=== PATIENT | male | born 1940 | race Caucasian/White ===

== ENCOUNTER 2023-02-13 12:27 | Emergency (ER) | payer MEDICARE ==
[2023-02-13 13:16] LABS: #Basophils 0.1 thou/uL (0.0-0.2); #Monocytes 0.9 thou/uL (0.11-0.59); %Basophils 0.6 % (0.0-1.0); %Eosinophils 0.1 % (0.0-10.0); %Monocytes 5.1 % (0.0-10.0); %Neutrophils 80.9 % (42.0-75.0); Hematocrit 40.8 % (42.0-52.0); Hemoglobin 14.1 g/dL (14.0-18.0); Mean Corpuscular HGB CONC 34.6 g/dL (32.0-36.0); Mean Corpuscular Hemoglobin 30.7 pg (27.0-31.0); Mean Corpuscular Volume 88.7 fl (78.0-98.0); Mean Platelet Volume 10.3 fL (7.4-10.4); Platelet Count 185 10x3/uL (130-400); RBC Distribution Width 12.7 % (11.5-14.5); White Blood Cell (WBC) Count 17.3 10x3/uL (4.8-10.8)
[2023-02-13 13:24] LABS: Bacteria/HPF None Seen HPF (None Seen); Bilirubin Negative (Negative); Blood, Urine Negative (Negative); CAUTI Indications for Culture Alt mental st,lethar; Clarity Clear (Clear); Glucose, Urine (Dipstick) Normal (Negative); Ketone, Urine Negative (Negative); Leukocyte Negative Leu/uL (Negative); Nitrite Negative (Negative); Protein, Urine (Dipstick) Negative (Neg-Trace); RBC/HPF None Seen HPF (0-3); Specific Gravity, Urine 1.017 (1.002-1.036); Squamous Epithelial None Seen HPF (0-3); Urobilinogen Normal mg/dL (Less than 2); WBC/HPF 0-3 HPF (0-3)
[2023-02-13 13:28] LABS: Urine Culture Reflex No No
[2023-02-13 13:37] LABS: INR-International Normal Ratio 1.1; PTT 30.2 sec (22.9-36.1); Prothrombin Time 14.3 sec (12.0-14.7)
[2023-02-13 13:43] LABS: ALT (SGPT) 11 U/L (8-55); AST (SGOT) 36 U/L (5-34); Albumin 4.1 g/dL (3.4-4.8); Alkaline Phosphatase 85 U/L (40-110); Anion Gap 12 mmol/L (10-20); BUN (Urea Nitrogen) 19 mg/dL (8.4-25.7); Calc. Creatinine Clearance 0 mL/min (70-130); Calcium 9.4 mg/dL (7.8-10.44); Carbon Dioxide 22 mmol/L (23-31); Chloride 102 mmol/L (98-107); Estimated GFR 72; Globulin 3.7 g/dL (2.4-3.5); Glucose 133 mg/dL (83-110); Potassium 4.1 mmol/L (3.5-5.1); Protein, Total 7.8 g/dL (5.8-8.1); Sodium 132 mmol/L (136-145)
[2023-02-13 14:16] LABS: Troponin I Less than 0.010 ng/mL (< 0.028)
[2023-02-13] MEDS ORDERED: cefTRIAXone (ROCEPHIN) 1 GM VIAL ONE (14:27)
== END 2023-02-13 15:30 | disposition home or self-care (01) ==
LOC: ERS 12:27
DX: R53.1 Weakness (principal); J18.9 Pneumonia, unspecified organism
CPT/HCPCS: 36415; 51701; 70450; 71045; 80053; 81001; 83605; 84484; 85025; 85610; 85730; 87040; 87086; 93005; 94760; 96374; J0696

== ENCOUNTER 2024-02-24 21:59 | Inpatient (IN) | payer MEDICARE ==
[2024-02-24 22:59] LABS: Bacteria/HPF None Seen HPF (None Seen); Bilirubin Negative (Negative); Blood, Urine 1+ (Negative); CAUTI Indications for Culture Dysuria,urgency,freq; Clarity Extra Turbid (Clear); Glucose, Urine (Dipstick) Normal (Negative); Ketone, Urine Trace mg/dL (Negative); Leukocyte 500 Leu/uL (Negative); Nitrite Negative (Negative); Protein, Urine (Dipstick) 30 mg/dL (Neg-Trace); RBC/HPF 21-50 HPF (0-3); Squamous Epithelial None Seen HPF (0-3); Urobilinogen Normal mg/dL (Less than 2); WBC/HPF Greater than 50 HPF (0-3); pH, Urine 5.5 (5.0-9.0)
[2024-02-24 23:01] LABS: Urine Culture Reflex Yes Yes
[2024-02-24 23:24] LABS: #Basophils 0.12 10x3/uL (0.0-0.2); #Eosinphils Less than 0.03 10x3/uL (0.0-0.7); %Basophils 0.5 % (0.0-1.0); %Eosinophils 0.1 % (0.0-10.0); %Lymphocytes 9.8 % (21.0-51.0); %Monocytes 7.9 % (0.0-10.0); %Neutrophils 81.2 % (42.0-75.0); Hematocrit 35.7 % (42.0-52.0); Mean Corpuscular HGB CONC 33.6 g/dL (32.0-36.0); Mean Corpuscular Hemoglobin 30.8 pg (27.0-31.0); Mean Corpuscular Volume 91.8 fL (78.0-98.0); Mean Platelet Volume 10.3 fL (7.4-10.4); Platelet Count 189 10x3/uL (130-400); RBC Distribution Width 13.2 % (11.5-14.5); Red Blood Cell (RBC) Count 3.89 mill/uL (4.70-6.10)
[2024-02-24 23:28] LABS: ALT (SGPT) Less than 5 U/L (8-55); AST (SGOT) 24 U/L (5-34); Albumin 3.6 g/dL (3.4-4.8); Alkaline Phosphatase 90 U/L (40-110); Anion Gap 15 mmol/L (10-20); BUN (Urea Nitrogen) 17 mg/dL (8.4-25.7); Bilirubin, Total 1.1 mg/dL (0.2-1.2); Calc. Creatinine Clearance 0 mL/min (70-130); Calcium 9.3 mg/dL (7.8-10.44); Carbon Dioxide 21 mmol/L (23-31); Chloride 101 mmol/L (98-107); Estimated GFR 78; Globulin 3.7 g/dL (2.4-3.5); Glucose 134 mg/dL (83-110); Potassium 3.8 mmol/L (3.5-5.1); Protein, Total 7.3 g/dL (5.8-8.1); Sodium 133 mmol/L (136-145)
[2024-02-24 23:34] LABS: Troponin I 0.024 ng/mL (< 0.028)
[2024-02-24] MEDS ORDERED: Sodium Chloride 0.9% 100 ML ONE (23:48)
[2024-02-24] MEDS ORDERED: Piperacillin/Tazobactam 3.375 GM VIAL ONE (23:48)
[2024-02-25 00:34] LABS: Lipase 54 U/L (8-78); Magnesium 1.9 mg/dL (1.6-2.6)
[2024-02-25] MEDS ORDERED: Ondansetron ODT 4 MG TAB PO PRN (01:15)
[2024-02-25] MEDS ORDERED: Acetaminophen 325 MG TAB PO PRN (01:15)
[2024-02-25 02:55] LABS: #Basophils 0.11 10x3/uL (0.0-0.2); #Eosinphils Less than 0.03 10x3/uL (0.0-0.7); %Basophils 0.6 % (0.0-1.0); %Eosinophils 0.1 % (0.0-10.0); %Lymphocytes 12.3 % (21.0-51.0); %Neutrophils 77.6 % (42.0-75.0); Hemoglobin 11.6 g/dL (14.0-18.0); Mean Corpuscular HGB CONC 33.1 g/dL (32.0-36.0); Mean Corpuscular Hemoglobin 31.3 pg (27.0-31.0); Mean Corpuscular Volume 94.3 fL (78.0-98.0); Mean Platelet Volume 10.2 fL (7.4-10.4); Platelet Count 164 10x3/uL (130-400); RBC Distribution Width 13.2 % (11.5-14.5); Red Blood Cell (RBC) Count 3.71 mill/uL (4.70-6.10)
[2024-02-25 03:08] LABS: Lactic Acid 2.02 mmol/L (0.5-2.2)
[2024-02-25] MEDS: Piperacillin/Tazobactam 3.375 GM in Sodium Chloride 0.9% 100 ML IVPB SCH (04:18)
[2024-02-25 04:55] LABS: ALT (SGPT) 11 U/L (8-55); AST (SGOT) 23 U/L (5-34); Albumin 3.4 g/dL (3.4-4.8); Alkaline Phosphatase 82 U/L (40-110); Anion Gap 17 mmol/L (10-20); BUN (Urea Nitrogen) 16 mg/dL (8.4-25.7); Bilirubin, Total 1.5 mg/dL (0.2-1.2); Calc. Creatinine Clearance 78 mL/min (70-130); Calcium 8.9 mg/dL (7.8-10.44); Carbon Dioxide 15 mmol/L (23-31); Chloride 106 mmol/L (98-107); Estimated GFR 87; Globulin 3.3 g/dL (2.4-3.5); Glucose 122 mg/dL (83-110); Potassium 3.8 mmol/L (3.5-5.1); Protein, Total 6.7 g/dL (5.8-8.1); Sodium 134 mmol/L (136-145)
[2024-02-25] MEDS: Carbidopa/Levodopa 25-100 mg Tablet PO SCH ×2 (08:33→15:01)
[2024-02-25] MEDS: Saccharomyces boulardii 250 MG CAP PO SCH (08:33)
[2024-02-25] MEDS: Sertraline 25 MG TAB PO SCH (08:33)
[2024-02-25] MEDS: Apixaban 5 MG TAB PO SCH (08:33)
[2024-02-25] MEDS ORDERED: Enoxaparin 30 MG (0.3 mL) SYRINGE SC SCH (09:00)
[2024-02-25 10:08] LABS: Amphetamine Detected (NotDetected); Barbiturates Screen Not Detected (NotDetected); Benzodiazepine Screen Not Detected (NotDetected); Cocaine Metabolite Screen Not Detected (NotDetected); Methadone Not Detected (NotDetected); Methamphetamine Not Detected (NotDetected); Opiate Screen Not Detected (NotDetected); Oxycodone Screen Not Detected (NotDetected); Phencyclidine (PCP) Not Detected (NotDetected); THC/Cannabinoid Screen Not Detected (NotDetected); Tricyclic Screen Not Detected (NotDetected)
[2024-02-25] MEDS: Famotidine 20 MG TAB PO SCH (20:56)
[2024-02-26 06:24] VITALS: BMI 26.0
[2024-02-26 08:40] LABS: #Basophils 0.08 10x3/uL (0.0-0.2); %Basophils 0.9 % (0.0-1.0); %Eosinophils 1.1 % (0.0-10.0); %Lymphocytes 19.8 % (21.0-51.0); %Monocytes 8.7 % (0.0-10.0); %Neutrophils 69.2 % (42.0-75.0); Hematocrit 34.3 % (42.0-52.0); Hemoglobin 11.6 g/dL (14.0-18.0); Mean Corpuscular HGB CONC 33.8 g/dL (32.0-36.0); Mean Corpuscular Hemoglobin 30.9 pg (27.0-31.0); Mean Corpuscular Volume 91.5 fL (78.0-98.0); Mean Platelet Volume 10.7 fL (7.4-10.4); Platelet Count 143 10x3/uL (130-400); RBC Distribution Width 13.2 % (11.5-14.5); Red Blood Cell (RBC) Count 3.75 mill/uL (4.70-6.10)
[2024-02-26 08:56] LABS: ALT (SGPT) 8 U/L (8-55); AST (SGOT) 21 U/L (5-34); Alkaline Phosphatase 77 U/L (40-110); Anion Gap 12 mmol/L (10-20); BUN (Urea Nitrogen) 11 mg/dL (8.4-25.7); Calc. Creatinine Clearance 72 mL/min (70-130); Calcium 8.6 mg/dL (7.8-10.44); Carbon Dioxide 23 mmol/L (23-31); Chloride 105 mmol/L (98-107); Estimated GFR 86; Globulin 3.6 g/dL (2.4-3.5); Glucose 153 mg/dL (83-110); Potassium 3.6 mmol/L (3.5-5.1); Protein, Total 6.6 g/dL (5.8-8.1); Sodium 136 mmol/L (136-145)
[2024-02-27 05:31] LABS: #Basophils 0.07 10x3/uL (0.0-0.2); %Basophils 1.2 % (0.0-1.0); %Eosinophils 2.4 % (0.0-10.0); %Lymphocytes 27.1 % (21.0-51.0); %Monocytes 10.9 % (0.0-10.0); %Neutrophils 58.1 % (42.0-75.0); Hematocrit 33.5 % (42.0-52.0); Hemoglobin 11.3 g/dL (14.0-18.0); Mean Corpuscular HGB CONC 33.7 g/dL (32.0-36.0); Mean Platelet Volume 10.5 fL (7.4-10.4); Platelet Count 164 10x3/uL (130-400); RBC Distribution Width 12.9 % (11.5-14.5); Red Blood Cell (RBC) Count 3.64 mill/uL (4.70-6.10)
[2024-02-27 05:49] LABS: ALT (SGPT) 5 U/L (8-55); AST (SGOT) 19 U/L (5-34); Albumin 3.1 g/dL (3.4-4.8); Alkaline Phosphatase 76 U/L (40-110); Anion Gap 12 mmol/L (10-20); BUN (Urea Nitrogen) 10 mg/dL (8.4-25.7); Bilirubin, Total 0.6 mg/dL (0.2-1.2); Calc. Creatinine Clearance 73 mL/min (70-130); Calcium 8.8 mg/dL (7.8-10.44); Carbon Dioxide 22 mmol/L (23-31); Chloride 108 mmol/L (98-107); Estimated GFR 87; Globulin 3.4 g/dL (2.4-3.5); Glucose 120 mg/dL (83-110); Potassium 3.7 mmol/L (3.5-5.1); Protein, Total 6.5 g/dL (5.8-8.1); Sodium 138 mmol/L (136-145)
[2024-02-27 06:32] LABS: Campy jejuni + coli by PCR Negative (Negative); STEC Shiga Toxin 1+2 Negative (Negative); Salmonella spp. by PCR Negative (Negative); Shigella spp + EIEC by PCR Negative (Negative)
[2024-02-27] MEDS: Famotidine 20 MG TAB PO SCH ×2 (13:27→20:08)
[2024-02-27] MEDS: Cefepime 1 GM in Sodium Chloride 0.9% 100 ML IVPB SCH (20:09)
[2024-02-28 05:26] LABS: #Basophils 0.08 10x3/uL (0.0-0.2); %Basophils 1.5 % (0.0-1.0); %Eosinophils 4.3 % (0.0-10.0); %Lymphocytes 48.2 % (21.0-51.0); %Monocytes 9.2 % (0.0-10.0); %Neutrophils 36.6 % (42.0-75.0); Hematocrit 34.4 % (42.0-52.0); Hemoglobin 11.5 g/dL (14.0-18.0); Mean Corpuscular HGB CONC 33.4 g/dL (32.0-36.0); Mean Corpuscular Hemoglobin 31.1 pg (27.0-31.0); Mean Platelet Volume 10.2 fL (7.4-10.4); Platelet Count 174 10x3/uL (130-400); RBC Distribution Width 12.8 % (11.5-14.5)
[2024-02-28 05:37] LABS: ALT (SGPT) Less than 5 U/L (8-55); AST (SGOT) 19 U/L (5-34); Albumin 3.1 g/dL (3.4-4.8); Alkaline Phosphatase 78 U/L (40-110); Anion Gap 13 mmol/L (10-20); BUN (Urea Nitrogen) 10 mg/dL (8.4-25.7); Bilirubin, Total 0.6 mg/dL (0.2-1.2); Calc. Creatinine Clearance 79 mL/min (70-130); Calcium 9.5 mg/dL (7.8-10.44); Carbon Dioxide 23 mmol/L (23-31); Chloride 108 mmol/L (98-107); Estimated GFR 89; Globulin 3.6 g/dL (2.4-3.5); Glucose 106 mg/dL (83-110); Potassium 3.6 mmol/L (3.5-5.1); Protein, Total 6.7 g/dL (5.8-8.1); Sodium 140 mmol/L (136-145)
[2024-02-29 05:33] LABS: #Basophils 0.09 10x3/uL (0.0-0.2); %Basophils 1.4 % (0.0-1.0); %Eosinophils 3.7 % (0.0-10.0); %Lymphocytes 41.9 % (21.0-51.0); %Neutrophils 43.8 % (42.0-75.0); Hematocrit 36.9 % (42.0-52.0); Hemoglobin 12.3 g/dL (14.0-18.0); Mean Corpuscular HGB CONC 33.3 g/dL (32.0-36.0); Mean Corpuscular Volume 92.9 fL (78.0-98.0); Mean Platelet Volume 9.8 fL (7.4-10.4); Platelet Count 207 10x3/uL (130-400); RBC Distribution Width 12.6 % (11.5-14.5); Red Blood Cell (RBC) Count 3.97 mill/uL (4.70-6.10)
[2024-02-29 05:38] LABS: ALT (SGPT) 6 U/L (8-55); AST (SGOT) 18 U/L (5-34); Albumin 3.4 g/dL (3.4-4.8); Alkaline Phosphatase 81 U/L (40-110); Anion Gap 12 mmol/L (10-20); BUN (Urea Nitrogen) 10 mg/dL (8.4-25.7); Bilirubin, Total 0.6 mg/dL (0.2-1.2); Calc. Creatinine Clearance 66 mL/min (70-130); Calcium 9.5 mg/dL (7.8-10.44); Carbon Dioxide 25 mmol/L (23-31); Chloride 107 mmol/L (98-107); Estimated GFR 79; Globulin 3.7 g/dL (2.4-3.5); Glucose 111 mg/dL (83-110); Potassium 3.8 mmol/L (3.5-5.1); Protein, Total 7.1 g/dL (5.8-8.1); Sodium 140 mmol/L (136-145)
[2024-03-01] MEDS ORDERED: Lidocaine 1% PF 5 ML VIAL ONE (07:50)
[2024-03-01] MEDS ORDERED: Sodium Bicarbonate 0.5 MEQ/ML SDV 10 ML ONE (07:50)
[2024-03-02 13:22] VITALS: BP 109/63; TEMP 97.4
== END 2024-03-02 13:30 | DRG 690 ==
LOC: ERS 21:59 → MSONC 02-25 00:31 → OBSVTOIN 02-26 08:42
PROVIDERS: ADMIT Family Medicine; ATTEND Family Medicine
PROC: 02HV33Z Insertion of Infusion Device into Superior Vena Cava, Percutaneous Approach (ICD-10-PCS; principal; 2024-03-01)
PROC: B5181ZA Fluoroscopy of Superior Vena Cava using Low Osmolar Contrast, Guidance (ICD-10-PCS; 2024-03-01)
PROC: B548ZZA Ultrasonography of Superior Vena Cava, Guidance (ICD-10-PCS; 2024-03-01)
DX: N39.0 Urinary tract infection, site not specified (principal); E87.1 Hypo-osmolality and hyponatremia; G20.A1 Parkinson's disease without dyskinesia, without mention of fluctuations; E11.9 Type 2 diabetes mellitus without complications; N40.0 Benign prostatic hyperplasia without lower urinary tract symptoms; Z66 Do not resuscitate; R19.7 Diarrhea, unspecified; Z79.899 Other long term (current) drug therapy
CPT/HCPCS: 36415; 36569; 51701; 76937; 77001; 80053; 80306; 81001; 83605; 83690; 83735; 83880; 84436; 84443; 84484; 85025; 87040; 87077; 87086; 87186; 87324; 87449; 87505; 96365; 96376; C1751; G0378; J0692; J2543

== ENCOUNTER 2024-03-03 01:28 | Emergency (ER) | payer MEDICARE ==
[2024-03-03] MEDS ORDERED: Cefepime 1 GM VIAL ONE (09:00)
[2024-03-03] MEDS ORDERED: Sodium Chloride 0.9% 100 ML ONE (09:01)
== END 2024-03-03 09:05 | disposition home or self-care (01) ==
LOC: ERS 01:28
DX: Z45.2 Encounter for adjustment and management of vascular access device (principal); N39.0 Urinary tract infection, site not specified; E11.9 Type 2 diabetes mellitus without complications
CPT/HCPCS: 96374; J0692

== ENCOUNTER 2024-03-04 17:48 | Emergency (ER) | payer MEDICARE ==
[~2024-03-04 17:48] MED LIST: Iopamidol-370 76% 500 ML MDV (1 ML CHARGE) ONE
[2024-03-04 21:02] LABS: #Basophils 0.08 10x3/uL (0.0-0.2); %Basophils 1.2 % (0.0-1.0); %Eosinophils 2.4 % (0.0-10.0); %Lymphocytes 25.2 % (21.0-51.0); %Monocytes 13.8 % (0.0-10.0); Hematocrit 35.8 % (42.0-52.0); Hemoglobin 12.5 g/dL (14.0-18.0); Mean Corpuscular HGB CONC 34.9 g/dL (32.0-36.0); Mean Corpuscular Hemoglobin 31.3 pg (27.0-31.0); Mean Corpuscular Volume 89.5 fL (78.0-98.0); Platelet Count 193 10x3/uL (130-400); RBC Distribution Width 12.6 % (11.5-14.5)
[2024-03-04 21:18] LABS: ALT (SGPT) Less than 5 U/L (8-55); AST (SGOT) 22 U/L (5-34); Albumin 3.5 g/dL (3.4-4.8); Alkaline Phosphatase 81 U/L (40-110); Anion Gap 11 mmol/L (10-20); BUN (Urea Nitrogen) 17 mg/dL (8.4-25.7); Bilirubin, Total 0.6 mg/dL (0.2-1.2); Calc. Creatinine Clearance 0 mL/min (70-130); Calcium 9.4 mg/dL (7.8-10.44); Carbon Dioxide 22 mmol/L (23-31); Chloride 102 mmol/L (98-107); Estimated GFR 87; Globulin 3.4 g/dL (2.4-3.5); Glucose 116 mg/dL (83-110); Lipase 65 U/L (8-78); Potassium 3.6 mmol/L (3.5-5.1); Protein, Total 6.9 g/dL (5.8-8.1); Sodium 131 mmol/L (136-145)
[2024-03-04] MEDS ORDERED: Cefepime 1 GM VIAL ONE (21:19)
[2024-03-04] MEDS ORDERED: Sodium Chloride 0.9% 100 ML ONE (21:19)
[2024-03-04 21:24] LABS: Troponin I 0.019 ng/mL (< 0.028)
[2024-03-04 22:30] LABS: Bacteria/HPF None Seen HPF (None Seen); Bilirubin Negative (Negative); Blood, Urine Negative (Negative); CAUTI Indications for Culture Alt mental st,lethar; Clarity Clear (Clear); Glucose, Urine (Dipstick) Normal (Negative); Ketone, Urine Negative (Negative); Leukocyte Negative Leu/uL (Negative); Nitrite Negative (Negative); Protein, Urine (Dipstick) Negative (Neg-Trace); RBC/HPF 0-3 HPF (0-3); Squamous Epithelial None Seen HPF (0-3); Urobilinogen Normal mg/dL (Less than 2); WBC/HPF 0-3 HPF (0-3); pH, Urine 5.5 (5.0-9.0)
[2024-03-04 22:44] LABS: Urine Culture Reflex No No
== END 2024-03-05 01:34 | disposition home or self-care (01) ==
LOC: ERS 17:48
DX: R41.82 Altered mental status, unspecified (principal); R05.9 Cough, unspecified; R53.1 Weakness; E11.9 Type 2 diabetes mellitus without complications; Z79.01 Long term (current) use of anticoagulants; Z55.6 Problems related to health literacy
CPT/HCPCS: 51701; 70450; 71275; 72125; 74177; 80053; 81001; 83605; 83690; 83880; 84484; 85025; 87040; 87086; 87428; 93005; 99285; J0692; Q9967; 36415

== ENCOUNTER 2024-03-14 18:53 | Emergency (ER) | payer MEDICARE | END 2024-03-14 23:55 | disposition home or self-care (01) | LOC: ERS 18:53 | DX: S00.03XA Contusion of scalp, initial encounter (principal); E11.9 Type 2 diabetes mellitus without complications; W07.XXXA Fall from chair, initial encounter | CPT/HCPCS: 70450; 72125 ==

== ENCOUNTER 2024-07-19 15:47 | Inpatient (IN) | payer MEDICARE ==
[2024-07-19 16:33] LABS: Analyzer IN Cardio ER; Base Excess 0.7 mEq/L (-2.0 to +3.0); Chloride (VBG) 97 mmol/L (98-106); Hematocrit-VBG 42 % (42.0-52.0); Hemoglobin (Hb) 14.2 g/dL (12.6-17.4); Potassium (VBG) 4.18 mmol/L (3.70-5.30); Sodium 135 mmol/L (133-146); pH (venous) 7.388 (7.32-7.43)
[2024-07-19 16:56] LABS: #Basophils 0.03 10x3/uL (0.0-0.2); %Basophils 0.3 % (0.0-1.0); %Eosinophils 0.7 % (0.0-10.0); %Lymphocytes 10.4 % (21.0-51.0); %Monocytes 5.1 % (0.0-10.0); %Neutrophils 83.2 % (42.0-75.0); Hematocrit 40.6 % (42.0-52.0); Hemoglobin 13.9 g/dL (14.0-18.0); Mean Corpuscular HGB CONC 34.2 g/dL (32.0-36.0); Mean Corpuscular Hemoglobin 29.3 pg (27.0-31.0); Mean Corpuscular Volume 85.7 fL (78.0-98.0); Platelet Count 206 10x3/uL (130-400); RBC Distribution Width 13.2 % (11.5-14.5); Red Blood Cell (RBC) Count 4.74 mill/uL (4.70-6.10)
[2024-07-19 17:06] LABS: ALT (SGPT) Less than 7 U/L (Less than 45); AST (SGOT) 34 U/L (11-34); Albumin 3.4 g/dL (3.1-4.5); Alkaline Phosphatase 121 U/L (40-110); Anion Gap 15 mmol/L (10-20); BUN (Urea Nitrogen) 13 mg/dL (8.4-25.7); Bilirubin, Total 1.2 mg/dL (0.3-1.2); Calc. Creatinine Clearance 0 mL/min (70-130); Calcium 9.2 mg/dL (7.8-10.44); Carbon Dioxide 24 mmol/L (23-31); Chloride 99 mmol/L (98-107); Estimated GFR 86; Globulin 4.4 g/dL (2.4-3.5); Glucose 145 mg/dL (83-110); Potassium 3.8 mmol/L (3.5-5.1); Protein, Total 7.8 g/dL (5.8-8.1); Sodium 134 mmol/L (136-145)
[2024-07-19 17:10] LABS: Troponin I 0.012 ng/mL (< 0.028)
[2024-07-19] MEDS ORDERED: Cefepime 2 GM VIAL ONE (17:10)
[2024-07-19] MEDS ORDERED: Sodium Chloride 0.9% 100 ML ONE (17:10)
[2024-07-19 17:54] LABS: Bacteria/HPF 4+ HPF (None Seen); Bilirubin Negative (Negative); Blood, Urine Trace (Negative); CAUTI Indications for Culture < 2yrs of age; Clarity Turbid (Clear); Glucose, Urine (Dipstick) Normal (Negative); Ketone, Urine Negative (Negative); Leukocyte 500 Leu/uL (Negative); Nitrite 2+ (Negative); Protein, Urine (Dipstick) 10 mg/dL (Neg-Trace); Specific Gravity, Urine 1.012 (1.002-1.036); Squamous Epithelial 0-3 HPF (0-3); Urobilinogen 3 mg/dL (Less than 2); WBC/HPF Greater than 50 HPF (0-3); pH, Urine 5.5 (5.0-9.0)
[2024-07-19 17:56] LABS: Urine Culture Reflex Yes Yes
[2024-07-19] MEDS ORDERED: Vancomycin (BATCH) 1.75 GM in Premix 1 BAG IVPB SCH (18:45)
[2024-07-19 20:16] LABS: Lactic Acid 4.02 mmol/L (0.50-2.20)
[2024-07-19] MEDS ORDERED: Acetaminophen 650 MG Suppository ONE (20:17)
[2024-07-19] MEDS ORDERED: Ondansetron PF 4 MG/2 ML Vial IVP PRN (20:30)
[2024-07-19] MEDS ORDERED: Dextrose 5% in Water 1,000 ML IV PRN (20:39)
[2024-07-19] MEDS ORDERED: Insulin Lispro 100 UNIT/ML 10 ML VIAL SC PRN ×2 (20:39)
[2024-07-19] MEDS ORDERED: Dextrose 50% Abboject 50 ML SYRINGE SLOW IVP PRN (20:39)
[2024-07-19] MEDS ORDERED: Glucagon 1 MG/ML KIT IM PRN (20:39)
[2024-07-19 22:35] LABS: Lactic Acid 1.96 mmol/L (0.50-2.20)
[2024-07-19 23:24] VITALS: BMI 25.1
[2024-07-20] MEDS: Sodium Chloride 0.9% 1,000 ML IV SCH ×2 (00:17→15:14)
[2024-07-20 04:38] LABS: #Basophils 0.06 10x3/uL (0.0-0.2); %Basophils 0.5 % (0.0-1.0); %Eosinophils 0.3 % (0.0-10.0); %Lymphocytes 16.2 % (21.0-51.0); %Monocytes 13.3 % (0.0-10.0); %Neutrophils 69.3 % (42.0-75.0); Hemoglobin 12.1 g/dL (14.0-18.0); Mean Corpuscular HGB CONC 33.6 g/dL (32.0-36.0); Mean Corpuscular Hemoglobin 29.4 pg (27.0-31.0); Mean Corpuscular Volume 87.6 fL (78.0-98.0); Mean Platelet Volume 10.4 fL (7.4-10.4); Platelet Count 156 10x3/uL (130-400); RBC Distribution Width 13.4 % (11.5-14.5); Red Blood Cell (RBC) Count 4.11 mill/uL (4.70-6.10)
[2024-07-20 04:58] LABS: Anion Gap 12 mmol/L (10-20); BUN (Urea Nitrogen) 12 mg/dL (8.4-25.7); Calc. Creatinine Clearance 76 mL/min (70-130); Calcium 8.3 mg/dL (7.8-10.44); Carbon Dioxide 20 mmol/L (23-31); Chloride 106 mmol/L (98-107); Estimated GFR 89; Glucose 125 mg/dL (83-110); Potassium 3.5 mmol/L (3.5-5.1); Sodium 134 mmol/L (136-145)
[2024-07-20] MEDS: Cefepime 2 GM in Sodium Chloride 0.9% 100 ML IVPB SCH (05:53)
[2024-07-20] MEDS: Vancomycin (BATCH) 2 GM in Premix 1 BAG IVPB SCH (07:49)
[2024-07-20] MEDS: Carbidopa/Levodopa 25-100 mg Tablet PO SCH ×3 (07:49→15:10)
[2024-07-20] MEDS: Vancomycin (BATCH) 1.5 GM in Premix 1 BAG IVPB SCH (09:01)
[2024-07-20] MEDS: Apixaban 5 MG TAB PO SCH (11:21)
[2024-07-20] MEDS: Sertraline 25 MG TAB PO SCH (11:21)
[2024-07-20] MEDS: Acetaminophen 325 MG TAB PO PRN (11:25)
[2024-07-20] MEDS: Famotidine 20 MG TAB PO SCH (11:32)
[2024-07-20] MEDS: Meropenem 1 GM in Sodium Chloride 0.9% 100 ML IVPB SCH ×2 (13:01→19:51)
[2024-07-20] MEDS ORDERED: Electrolyte Replacement Protocol 1 EACH FS SCH (14:07)
[2024-07-20] MEDS ORDERED: Potassium Chloride 20 MEQ TAB PO SCH (15:15)
[2024-07-20] MEDS: Potassium Chloride 20 MEQ in Premix 1 BAG IVPB SCH (16:15)
[2024-07-20] MEDS ORDERED: Milk Of Magnesia 30 ML UDCUP PO PRN (18:24)
[2024-07-20] MEDS ORDERED: Vancomycin 1 GM in Premix 1 BAG IVPB SCH (20:00)
[2024-07-21] MEDS: Acetaminophen 650 MG Suppository PR PRN (02:20)
[2024-07-21 04:19] LABS: #Basophils 0.06 10x3/uL (0.0-0.2); #Eosinophils Less than 0.03 10x3/uL (0.0-0.7); %Basophils 0.6 % (0.0-1.0); %Eosinophils 0.2 % (0.0-10.0); %Lymphocytes 17.3 % (21.0-51.0); %Monocytes 12.6 % (0.0-10.0); %Neutrophils 68.8 % (42.0-75.0); Hematocrit 36.9 % (42.0-52.0); Hemoglobin 12.3 g/dL (14.0-18.0); Mean Corpuscular HGB CONC 33.3 g/dL (32.0-36.0); Mean Corpuscular Hemoglobin 29.6 pg (27.0-31.0); Mean Corpuscular Volume 88.9 fL (78.0-98.0); Mean Platelet Volume 10.2 fL (7.4-10.4); Platelet Count 160 10x3/uL (130-400); RBC Distribution Width 13.2 % (11.5-14.5); Red Blood Cell (RBC) Count 4.15 mill/uL (4.70-6.10)
[2024-07-21 04:28] LABS: Anion Gap 15 mmol/L (10-20); BUN (Urea Nitrogen) 12 mg/dL (8.4-25.7); Calc. Creatinine Clearance 76 mL/min (70-130); Calcium 8.3 mg/dL (7.8-10.44); Carbon Dioxide 19 mmol/L (23-31); Chloride 105 mmol/L (98-107); Estimated GFR 89; Glucose 99 mg/dL (83-110); Magnesium 1.6 mg/dL (1.6-2.6); Potassium 3.5 mmol/L (3.5-5.1); Sodium 135 mmol/L (136-145)
[2024-07-21] MEDS: Magnesium 2 GM/50 ML(in water) 2 GM in Premix 1 BAG IVPB SCH (08:25)
[2024-07-21] MEDS: Potassium Chloride 20 MEQ in Premix 1 BAG IVPB SCH (09:40)
[2024-07-22 04:30] LABS: #Basophils 0.04 10x3/uL (0.0-0.2); %Basophils 0.7 % (0.0-1.0); %Eosinophils 1.7 % (0.0-10.0); %Lymphocytes 30.2 % (21.0-51.0); %Monocytes 14.2 % (0.0-10.0); %Neutrophils 52.7 % (42.0-75.0); Hematocrit 34.5 % (42.0-52.0); Hemoglobin 11.8 g/dL (14.0-18.0); Mean Corpuscular HGB CONC 34.2 g/dL (32.0-36.0); Mean Corpuscular Volume 84.8 fL (78.0-98.0); Mean Platelet Volume 10.5 fL (7.4-10.4); Platelet Count 171 10x3/uL (130-400); RBC Distribution Width 13.2 % (11.5-14.5); Red Blood Cell (RBC) Count 4.07 mill/uL (4.70-6.10)
[2024-07-22 04:57] LABS: Anion Gap 11 mmol/L (10-20); BUN (Urea Nitrogen) 11 mg/dL (8.4-25.7); Calc. Creatinine Clearance 96 mL/min (70-130); Calcium 8.1 mg/dL (7.8-10.44); Carbon Dioxide 20 mmol/L (23-31); Chloride 108 mmol/L (98-107); Estimated GFR 95; Glucose 102 mg/dL (83-110); Magnesium 1.9 mg/dL (1.6-2.6); Potassium 3.4 mmol/L (3.5-5.1); Sodium 136 mmol/L (136-145)
[2024-07-22] MEDS: Potassium Bicarbonate/Cit Ac 20 MEQ TAB PO SCH (08:56)
[2024-07-22] MEDS: Magnesium 2 GM/50 ML(in water) 2 GM in Premix 1 BAG IVPB SCH (09:01)
[2024-07-22] MEDS: Diphenoxylate HCl/Atropine Tablet PO PRN (20:25)
[2024-07-23 04:09] LABS: #Basophils 0.04 10x3/uL (0.0-0.2); %Basophils 0.7 % (0.0-1.0); %Eosinophils 2.4 % (0.0-10.0); %Lymphocytes 42.2 % (21.0-51.0); %Monocytes 10.3 % (0.0-10.0); Hematocrit 34.7 % (42.0-52.0); Hemoglobin 11.7 g/dL (14.0-18.0); Mean Corpuscular HGB CONC 33.7 g/dL (32.0-36.0); Mean Corpuscular Hemoglobin 29.1 pg (27.0-31.0); Mean Corpuscular Volume 86.3 fL (78.0-98.0); Mean Platelet Volume 10.2 fL (7.4-10.4); Platelet Count 202 10x3/uL (130-400); RBC Distribution Width 13.2 % (11.5-14.5); Red Blood Cell (RBC) Count 4.02 mill/uL (4.70-6.10)
[2024-07-23 04:29] LABS: Anion Gap 13 mmol/L (10-20); BUN (Urea Nitrogen) 11 mg/dL (8.4-25.7); Calc. Creatinine Clearance 93 mL/min (70-130); Calcium 8.5 mg/dL (7.8-10.44); Carbon Dioxide 24 mmol/L (23-31); Chloride 105 mmol/L (98-107); Estimated GFR 94; Glucose 116 mg/dL (83-110); Magnesium 1.8 mg/dL (1.6-2.6); Potassium 3.7 mmol/L (3.5-5.1); Sodium 138 mmol/L (136-145)
[2024-07-23] MEDS: Magnesium 2 GM/50 ML(in water) 2 GM in Premix 1 BAG IVPB SCH (09:06)
[2024-07-23] MEDS: Saccharomyces boulardii 250 MG CAP PO SCH (09:06)
[2024-07-23] MEDS: Tamsulosin HCl 0.4 MG CAP PO SCH (20:25)
[2024-07-24 05:38] LABS: #Basophils 0.05 10x3/uL (0.0-0.2); %Basophils 0.9 % (0.0-1.0); %Lymphocytes 38.6 % (21.0-51.0); %Monocytes 8.8 % (0.0-10.0); %Neutrophils 47.3 % (42.0-75.0); Hematocrit 34.3 % (42.0-52.0); Hemoglobin 11.8 g/dL (14.0-18.0); Mean Corpuscular HGB CONC 34.4 g/dL (32.0-36.0); Mean Corpuscular Hemoglobin 29.1 pg (27.0-31.0); Mean Corpuscular Volume 84.7 fL (78.0-98.0); Mean Platelet Volume 9.6 fL (7.4-10.4); Platelet Count 204 10x3/uL (130-400); RBC Distribution Width 13.2 % (11.5-14.5); Red Blood Cell (RBC) Count 4.05 mill/uL (4.70-6.10)
[2024-07-24 05:58] LABS: Anion Gap 12 mmol/L (10-20); BUN (Urea Nitrogen) 11 mg/dL (8.4-25.7); Calc. Creatinine Clearance 93 mL/min (70-130); Calcium 8.6 mg/dL (7.8-10.44); Carbon Dioxide 27 mmol/L (23-31); Chloride 103 mmol/L (98-107); Estimated GFR 94; Glucose 118 mg/dL (83-110); Potassium 3.6 mmol/L (3.5-5.1); Sodium 138 mmol/L (136-145)
[2024-07-24] MEDS: Magnesium 2 GM/50 ML(in water) 2 GM in Premix 1 BAG IVPB SCH (09:00)
[2024-07-25 05:10] LABS: Magnesium 2.1 mg/dL (1.6-2.6)
[2024-07-25] MEDS ORDERED: Electrolyte Replacement Protocol FS PRN (06:45)
[2024-07-25] MEDS: Benzonatate 100 MG CAP PO PRN (08:07)
[2024-07-25] MEDS ORDERED: Ciprofloxacin 0.3% Ophth Soln 2.5 ml Bottle EA EYE SCH (13:20)
[2024-07-25] MEDS: Ciprofloxacin 0.3% Ophth Soln 2.5 ml Bottle EA EYE SCH ×2 (14:28→19:41)
[2024-07-25] MEDS: Sertraline 25 MG TAB PO SCH (19:40)
[2024-07-26 23:47] VITALS: BMI 25.1
[2024-07-27 05:34] VITALS: TEMP 97.7
[2024-07-27 12:01] VITALS: BP 111/68
== END 2024-07-27 14:41 | DRG 698 ==
LOC: ERS 15:47 → PCU 20:33 → T4-B 07-23 13:24
PROVIDERS: ADMIT Internal Medicine; ATTEND Family Medicine
DX: T83.511A Infection and inflammatory reaction due to indwelling urethral catheter, initial encounter (principal); A41.51 Sepsis due to Escherichia coli [E. coli]; G93.41 Metabolic encephalopathy; Z16.12 Extended spectrum beta lactamase (ESBL) resistance; N39.0 Urinary tract infection, site not specified; G20.A1 Parkinson's disease without dyskinesia, without mention of fluctuations; E11.9 Type 2 diabetes mellitus without complications; K21.9 Gastro-esophageal reflux disease without esophagitis; Y84.6 Urinary catheterization as the cause of abnormal reaction of the patient, or of later complication, without mention of misadventure at the time of the procedure; N40.0 Benign prostatic hyperplasia without lower urinary tract symptoms; I48.91 Unspecified atrial fibrillation; R33.9 Retention of urine, unspecified; Z79.899 Other long term (current) drug therapy; Z86.711 Personal history of pulmonary embolism; Z79.01 Long term (current) use of anticoagulants; Z86.718 Personal history of other venous thrombosis and embolism
CPT/HCPCS: 36415; 36416; 51702; 70450; 71045; 80048; 80053; 80202; 81001; 82805; 83605; 83735; 83880; 84443; 84484; 85025; 87040; 87077; 87081; 87086; 87149; 87186; 87324; 87428; 87449; 93005; 94760; 96374; 96375; J0692; J2185; J3370; J3475; J3480; J7030

== ENCOUNTER 2024-09-15 19:07 | Inpatient (IN) | payer MEDICARE ==
[2024-09-15 20:26] LABS: Bacteria/HPF 4+ HPF (None Seen); Bilirubin Negative (Negative); Blood, Urine 3+ (Negative); CAUTI Indications for Culture Alt mental st,lethar; Glucose, Urine (Dipstick) Normal (Negative); Ketone, Urine Negative (Negative); Leukocyte 500 Leu/uL (Negative); Nitrite 2+ (Negative); Protein, Urine (Dipstick) 50 mg/dL (Neg-Trace); RBC/HPF Greater than 50 HPF (0-3); Specific Gravity, Urine 1.008 (1.002-1.036); Squamous Epithelial 0-3 HPF (0-3); Urobilinogen Normal mg/dL (Less than 2); WBC/HPF Greater than 50 HPF (0-3)
[2024-09-15 20:31] LABS: Clarity Hazy (Clear)
[2024-09-15 20:33] LABS: Urine Culture Reflex Yes Yes
[2024-09-15 20:39] LABS: #Basophils 0.09 10x3/uL (0.0-0.2); #Eosinophils Less than 0.03 10x3/uL (0.0-0.7); %Basophils 0.6 % (0.0-1.0); %Eosinophils 0.1 % (0.0-10.0); %Lymphocytes 12.1 % (21.0-51.0); %Monocytes 10.9 % (0.0-10.0); %Neutrophils 75.9 % (42.0-75.0); Hematocrit 34.2 % (42.0-52.0); Hemoglobin 11.5 g/dL (14.0-18.0); Mean Corpuscular HGB CONC 33.6 g/dL (32.0-36.0); Mean Corpuscular Hemoglobin 29.4 pg (27.0-31.0); Mean Corpuscular Volume 87.5 fL (78.0-98.0); Mean Platelet Volume 9.7 fL (7.4-10.4); Platelet Count 247 10x3/uL (130-400); RBC Distribution Width 14.6 % (11.5-14.5); Red Blood Cell (RBC) Count 3.91 mill/uL (4.70-6.10)
[2024-09-15 20:53] LABS: INR-International Normal Ratio 2.3; Prothrombin Time 25.1 sec (12.0-14.7)
[2024-09-15 20:54] LABS: PTT 55.5 sec (22.9-36.1)
[2024-09-15 20:54] LABS: ALT (SGPT) Less than 7 U/L (Less than 45); AST (SGOT) 50 U/L (11-34); Albumin 3.3 g/dL (3.1-4.5); Alkaline Phosphatase 110 U/L (40-110); Anion Gap 16 mmol/L (10-20); BUN (Urea Nitrogen) 12 mg/dL (8.4-25.7); Bilirubin, Total 1.2 mg/dL (0.3-1.2); Calc. Creatinine Clearance 0 mL/min (70-130); Calcium 8.7 mg/dL (7.8-10.44); Carbon Dioxide 18 mmol/L (23-31); Chloride 104 mmol/L (98-107); Estimated GFR 86; Globulin 3.9 g/dL (2.4-3.5); Glucose 131 mg/dL (83-110); Potassium 3.9 mmol/L (3.5-5.1); Protein, Total 7.2 g/dL (5.8-8.1); Sodium 134 mmol/L (136-145)
[2024-09-15 21:03] LABS: Troponin I 0.066 ng/mL (< 0.028)
[2024-09-15] MEDS ORDERED: Sodium Chloride 0.9% 100 ML ONE (21:16)
[2024-09-15] MEDS ORDERED: cefTRIAXone (ROCEPHIN) 2 GM VIAL ONE (21:16)
[2024-09-15] MEDS ORDERED: Ondansetron PF 4 MG/2 ML Vial IVP PRN (21:31)
[2024-09-16 00:03] LABS: Troponin I 0.066 ng/mL (< 0.028)
[2024-09-16 02:34] VITALS: BMI 21.4
[2024-09-16] MEDS: Carbidopa/Levodopa 25-100 mg Tablet PO SCH ×3 (02:35→14:44)
[2024-09-16] MEDS: Sodium Chloride 0.9% 1,000 ML IV SCH (02:42)
[2024-09-16 04:47] LABS: #Eosinophils Less than 0.03 10x3/uL (0.0-0.7); %Basophils 0.7 % (0.0-1.0); %Eosinophils 0.1 % (0.0-10.0); %Monocytes 9.7 % (0.0-10.0); %Neutrophils 80.1 % (42.0-75.0); Hematocrit 37.6 % (42.0-52.0); Hemoglobin 12.4 g/dL (14.0-18.0); Mean Corpuscular Hemoglobin 29.2 pg (27.0-31.0); Mean Corpuscular Volume 88.7 fL (78.0-98.0); Mean Platelet Volume 9.6 fL (7.4-10.4); Platelet Count 217 10x3/uL (130-400); RBC Distribution Width 14.6 % (11.5-14.5); Red Blood Cell (RBC) Count 4.24 mill/uL (4.70-6.10)
[2024-09-16 04:59] LABS: Anion Gap 15 mmol/L (10-20); BUN (Urea Nitrogen) 10 mg/dL (8.4-25.7); Calc. Creatinine Clearance 62 mL/min (70-130); Calcium 8.6 mg/dL (7.8-10.44); Carbon Dioxide 20 mmol/L (23-31); Chloride 106 mmol/L (98-107); Estimated GFR 87; Glucose 123 mg/dL (83-110); Potassium 3.5 mmol/L (3.5-5.1); Sodium 137 mmol/L (136-145)
[2024-09-16] MEDS ORDERED: Calcium Carbonate 500 MG ChewTAB PO PRN (08:12)
[2024-09-16] MEDS: Apixaban 5 MG TAB PO SCH (08:36)
[2024-09-16] MEDS: Famotidine 20 MG TAB PO SCH (08:37)
[2024-09-16] MEDS: Saccharomyces boulardii 250 MG CAP PO SCH (08:37)
[2024-09-16] MEDS: Zinc Sulfate 220 MG CAP PO SCH (08:37)
[2024-09-16] MEDS: Acetaminophen 325 MG TAB PO PRN (08:37)
[2024-09-16] MEDS: Polyethylene Glycol 3350 17 GM Packet PO SCH (08:39)
[2024-09-16] MEDS: Cefepime 1 GM in Sodium Chloride 0.9% 100 ML IVPB SCH (08:40)
[2024-09-16] MEDS ORDERED: Enoxaparin 40 MG (0.4 mL) SYRINGE SC SCH (09:00)
[2024-09-16] MEDS ORDERED: Famotidine/PF 20 mg/2ml Vial SLOW IVP SCH (09:00)
[2024-09-16] MEDS ORDERED: Senokot S 8.6-50 MG TAB PO SCH (09:00)
[2024-09-16] MEDS ORDERED: Electrolyte Replacement Protocol FS PRN (11:30)
[2024-09-16] MEDS: Potassium Chloride 20 MEQ in Lactated Ringer's 1,000 ML IV SCH (12:09)
[2024-09-16] MEDS: Meropenem 1 GM in Sodium Chloride 0.9% 100 ML IVPB SCH ×2 (12:09→18:20)
[2024-09-16] MEDS: Electrolyte Replacement Protocol 1 EACH FS ONE (12:18)
[2024-09-16] MEDS: Potassium Chloride 20 MEQ TAB PO SCH (14:45)
[2024-09-16] MEDS ORDERED: Potassium Bicarbonate/Cit Ac 20 MEQ TAB PO SCH (15:00)
[2024-09-16] MEDS: Ascorbic Acid 500 mg Chewable Tablet PO SCH (20:55)
[2024-09-16] MEDS: Folic Acid/Vit B Comp W-C PO SCH (20:55)
[2024-09-16] MEDS: Multivit, Therapeutic 1 TAB PO SCH (20:55)
[2024-09-16] MEDS: Cholecalciferol 1,000 UNITS (25 MCG) TAB PO SCH (20:55)
[2024-09-16] MEDS: Melatonin 3 MG TAB PO PRN (21:28)
[2024-09-17 04:15] LABS: #Basophils 0.07 10x3/uL (0.0-0.2); #Eosinophils Less than 0.03 10x3/uL (0.0-0.7); %Basophils 0.6 % (0.0-1.0); %Lymphocytes 15.4 % (21.0-51.0); %Monocytes 10.6 % (0.0-10.0); %Neutrophils 72.9 % (42.0-75.0); Hematocrit 30.4 % (42.0-52.0); Hemoglobin 10.2 g/dL (14.0-18.0); Mean Corpuscular HGB CONC 33.6 g/dL (32.0-36.0); Mean Corpuscular Hemoglobin 29.8 pg (27.0-31.0); Mean Corpuscular Volume 88.9 fL (78.0-98.0); Mean Platelet Volume 9.7 fL (7.4-10.4); Platelet Count 159 10x3/uL (130-400); RBC Distribution Width 14.7 % (11.5-14.5); Red Blood Cell (RBC) Count 3.42 mill/uL (4.70-6.10)
[2024-09-17 04:39] LABS: ALT (SGPT) Less than 7 U/L (Less than 45); AST (SGOT) 34 U/L (11-34); Albumin 2.7 g/dL (3.1-4.5); Alkaline Phosphatase 97 U/L (40-110); Anion Gap 11 mmol/L (10-20); BUN (Urea Nitrogen) 11 mg/dL (8.4-25.7); Bilirubin, Total 1.3 mg/dL (0.3-1.2); Calc. Creatinine Clearance 66 mL/min (70-130); Calcium 8.2 mg/dL (7.8-10.44); Carbon Dioxide 23 mmol/L (23-31); Chloride 105 mmol/L (98-107); Estimated GFR 89; Globulin 3.3 g/dL (2.4-3.5); Glucose 126 mg/dL (83-110); Magnesium 1.6 mg/dL (1.6-2.6); Potassium 3.2 mmol/L (3.5-5.1); Sodium 136 mmol/L (136-145)
[2024-09-17 04:40] LABS: Lactic Acid 1.42 mmol/L (0.50-2.20)
[2024-09-17 04:43] LABS: Phosphorus 1.7 mg/dL (2.5-4.5)
[2024-09-17] MEDS: Potassium Phosphate 15 MMOL in Sodium Chloride 0.9% 100 ML IVPB SCH (06:33)
[2024-09-17] MEDS: Magnesium 2 GM/50 ML(in water) 2 GM in Premix 1 BAG IVPB SCH (08:44)
[2024-09-17 10:56] VITALS: BMI 21.4
[2024-09-17] MEDS: Potassium Chloride 20 MEQ TAB PO SCH (12:44)
[2024-09-18 06:50] LABS: #Basophils 0.06 10x3/uL (0.0-0.2); %Basophils 0.8 % (0.0-1.0); %Lymphocytes 24.9 % (21.0-51.0); %Monocytes 12.9 % (0.0-10.0); Hematocrit 32.3 % (42.0-52.0); Hemoglobin 10.5 g/dL (14.0-18.0); Mean Corpuscular HGB CONC 32.5 g/dL (32.0-36.0); Mean Corpuscular Hemoglobin 29.3 pg (27.0-31.0); Mean Corpuscular Volume 90.2 fL (78.0-98.0); Mean Platelet Volume 10.5 fL (7.4-10.4); Platelet Count 156 10x3/uL (130-400); RBC Distribution Width 14.8 % (11.5-14.5); Red Blood Cell (RBC) Count 3.58 mill/uL (4.70-6.10)
[2024-09-18 07:08] LABS: Phosphorus 1.8 mg/dL (2.5-4.5)
[2024-09-18 07:10] LABS: ALT (SGPT) Less than 7 U/L (Less than 45); AST (SGOT) 28 U/L (11-34); Albumin 2.5 g/dL (3.1-4.5); Alkaline Phosphatase 93 U/L (40-110); Anion Gap 9 mmol/L (10-20); BUN (Urea Nitrogen) 11 mg/dL (8.4-25.7); Bilirubin, Total 0.6 mg/dL (0.3-1.2); Calc. Creatinine Clearance 81 mL/min (70-130); Calcium 8.2 mg/dL (7.8-10.44); Carbon Dioxide 26 mmol/L (23-31); Chloride 109 mmol/L (98-107); Estimated GFR 95; Globulin 3.3 g/dL (2.4-3.5); Glucose 102 mg/dL (83-110); Potassium 3.6 mmol/L (3.5-5.1); Protein, Total 5.8 g/dL (5.8-8.1); Sodium 140 mmol/L (136-145)
[2024-09-18] MEDS: Magnesium 2 GM/50 ML(in water) 2 GM in Premix 1 BAG IVPB SCH (10:06)
[2024-09-18] MEDS: PHOS-NAK 1 PKT PACK PO SCH (10:06)
[2024-09-18] MEDS: Ziprasidone 20 MG VIAL IM SCH (22:45)
[2024-09-18] MEDS: Sterile Water 10 ML VIAL FS SCH (22:57)
[2024-09-19 07:08] LABS: #Basophils 0.05 10x3/uL (0.0-0.2); %Basophils 0.8 % (0.0-1.0); %Eosinophils 1.9 % (0.0-10.0); %Lymphocytes 33.2 % (21.0-51.0); %Monocytes 11.8 % (0.0-10.0); %Neutrophils 52.1 % (42.0-75.0); Hematocrit 40.1 % (42.0-52.0); Hemoglobin 12.5 g/dL (14.0-18.0); Mean Corpuscular HGB CONC 31.2 g/dL (32.0-36.0); Mean Corpuscular Hemoglobin 28.9 pg (27.0-31.0); Mean Corpuscular Volume 92.8 fL (78.0-98.0); Mean Platelet Volume 11.3 fL (7.4-10.4); Platelet Count 156 10x3/uL (130-400); RBC Distribution Width 14.6 % (11.5-14.5); Red Blood Cell (RBC) Count 4.32 mill/uL (4.70-6.10)
[2024-09-21 11:17] VITALS: BP 96/58; TEMP 97.4
== END 2024-09-21 12:51 | DRG 698 ==
LOC: ERS 19:07 → 2NO 21:19 → UNDOADMIN 09-16 00:50 → 2NO 09-16 00:50
PROVIDERS: ADMIT Hospitalist; ATTEND Family Medicine
DX: T83.510A Infection and inflammatory reaction due to cystostomy catheter, initial encounter (principal); A41.51 Sepsis due to Escherichia coli [E. coli]; G93.41 Metabolic encephalopathy; J69.0 Pneumonitis due to inhalation of food and vomit; E87.1 Hypo-osmolality and hyponatremia; I5A Non-ischemic myocardial injury (non-traumatic); N39.0 Urinary tract infection, site not specified; N40.0 Benign prostatic hyperplasia without lower urinary tract symptoms; Z66 Do not resuscitate; E11.9 Type 2 diabetes mellitus without complications; K21.9 Gastro-esophageal reflux disease without esophagitis; R79.89 Other specified abnormal findings of blood chemistry; G20.A1 Parkinson's disease without dyskinesia, without mention of fluctuations; I44.0 Atrioventricular block, first degree; R33.9 Retention of urine, unspecified; Z98.890 Other specified postprocedural states; R53.81 Other malaise; N18.2 Chronic kidney disease, stage 2 (mild); E11.22 Type 2 diabetes mellitus with diabetic chronic kidney disease
CPT/HCPCS: 36415; 36416; 70450; 71045; 74018; 80048; 80053; 81001; 83605; 83735; 84100; 84145; 84484; 85025; 85610; 85730; 86141; 87040; 87077; 87086; 87149; 87186; 93005; 96361; 96365; J0692; J0696; J2185; J3475; J3480; J3486; J7030; J7120